=== PATIENT | male | born 1970 | race African-American/Black ===

== ENCOUNTER 2018-07-27 12:57 | Emergency (ER) | payer MEDICAID, OTHER ==
[~2018-07-27] VITALS: Ht 182.9 cm; Wt 90.7 kg
[~2018-07-27 12:57] MED LIST: BENA10TA9 PO; BUPR100T99 PO; GLYB5TAB7 PO; HYDR-3976 PO; METF-440 PO
[2018-07-27 13:06] VITALS: BP 127/80
[2018-07-27] MEDS ORDERED: LIDOCAINE HCL/PF 1% 30 ML SDV ONE (13:20)
[2018-07-27] MEDS ORDERED: TDAP [DIPH/PERTUSSIS/TET] 0.5 ML VIAL IM ONE ×2 (13:30→13:42)
[2018-07-27] MEDS ORDERED: IBUPROFEN 600 MG TABLET PO ONE ×2 (13:30→13:42)
[2018-07-27] MEDS ORDERED: LIDOCAINE 1% INJ 50 ML MDV IJ ONE (13:30)
--- NOTE | 2018-07-27 13:51 | NUR ---
Patient discharged to home in stable condition. Written and verbal after care instructions given. Patient verbalizes understanding of instruction.
--- NOTE | 2018-07-27 13:51 | NUR ---
INCISION AND DRAINAGE DONE BY ANA LAURA KING NP.
== END 2018-07-27 13:52 | disposition home or self-care (01) ==
LOC: ER 12:57
DX: L02.01 Cutaneous abscess of face (principal); L03.211 Cellulitis of face; J45.909 Unspecified asthma, uncomplicated; E11.9 Type 2 diabetes mellitus without complications; F17.200 Nicotine dependence, unspecified, uncomplicated; Z79.899 Other long term (current) drug therapy; Z79.84 Long term (current) use of oral hypoglycemic drugs
CPT/HCPCS: 90715; A6403; J3490

== ENCOUNTER 2019-05-08 11:53 | Emergency (ER) | payer OTHER ==
[~2019-05-08] VITALS: Ht 180.3 cm; Wt 86.6 kg
[~2019-05-08 11:53] MED LIST changes: +BENA10TA74 PO; -BENA10TA9 PO
--- NOTE | 2019-05-08 12:05 | NUR ---
called No response
[2019-05-08 12:12] VITALS: BP 146/87
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
--- NOTE | 2019-05-08 14:04 | NUR ---
Patient discharged to home in stable condition. Written and verbal after care instructions given. Patient verbalizes understanding of instruction.
== END 2019-05-08 14:06 | disposition home or self-care (01) ==
LOC: ER 12:04
DX: S02.32XA Fracture of orbital floor, left side, initial encounter for closed fracture (principal); S61.210A Laceration without foreign body of right index finger without damage to nail, initial encounter; S01.511A Laceration without foreign body of lip, initial encounter; S09.8XXA Other specified injuries of head, initial encounter; R51 Headache; E11.9 Type 2 diabetes mellitus without complications; J45.909 Unspecified asthma, uncomplicated; Z79.899 Other long term (current) drug therapy; Y08.89XA Assault by other specified means, initial encounter; Y93.39 Activity, other involving climbing, rappelling and jumping off; Y92.89 Other specified places as the place of occurrence of the external cause; Y99.8 Other external cause status
CPT/HCPCS: 70450; 70486; 99284; A6403

== ENCOUNTER 2021-02-06 10:34 | Emergency (ER) | payer OTHER ==
[~2021-02-06] VITALS: Ht 182.9 cm; Wt 95.3 kg
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
[2021-02-06] MEDS ORDERED: HYDROCODONE/APAP 5/325MG TABLET ONE (10:58)
[2021-02-06] MEDS ORDERED: HYDROCODONE/APAP 5/325MG TABLET PO ONE (11:00)
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
[2021-02-06] MEDS ORDERED: HYDR-3973 PO (11:22)
[2021-02-06 11:35] VITALS: BP 101/70
== END 2021-02-06 11:35 | disposition home or self-care (01) ==
LOC: ER 10:34
DX: S61.012A Laceration without foreign body of left thumb without damage to nail, initial encounter (principal); E11.9 Type 2 diabetes mellitus without complications; J45.909 Unspecified asthma, uncomplicated; F10.10 Alcohol abuse, uncomplicated; Y90.9 Presence of alcohol in blood, level not specified; Z79.899 Other long term (current) drug therapy; X58.XXXA Exposure to other specified factors, initial encounter; Y93.89 Activity, other specified; Y92.89 Other specified places as the place of occurrence of the external cause; Y99.8 Other external cause status
CPT/HCPCS: 73130; 99283; A6403 ×2